=== PATIENT | male | born 1965 | race Caucasian/White ===

== ENCOUNTER 2021-06-02 08:06 | Emergency (ER) | payer OTHER ==
[2021-06-02] MEDS ORDERED: Acetaminophen 325 MG Tab PO ONE (08:41)
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
== END 2021-06-02 10:10 | disposition home or self-care (01) ==
LOC: JP.ED 08:06
DX: S40.011A Contusion of right shoulder, initial encounter (principal); S50.01XA Contusion of right elbow, initial encounter; S80.01XA Contusion of right knee, initial encounter; Z95.1 Presence of aortocoronary bypass graft; V49.10XA Passenger injured in collision with unspecified motor vehicles in nontraffic accident, initial encounter; Y92.410 Unspecified street and highway as the place of occurrence of the external cause
CPT/HCPCS: 73030; 73080; 73562; 99284; A9270

== ENCOUNTER 2021-07-27 06:57 | Day surgery (SDC) | payer OTHER ==
[2021-07-27 07:52] LABS: CORONAVIRUS COVID-19 NAA NEGATIVE (NEGATIVE)
[2021-07-27] MEDS ORDERED: Nozin Nasal Sanitizer NASBOTH ONE (08:00)
[2021-07-27] MEDS ORDERED: Lactated Ringers 1,000 ML IV SCH (08:15)
[2021-07-27] MEDS ORDERED: ceFAZolin 1 GM in Sodium Chloride 0.9% 50 ML IV ONE (09:00)
[2021-07-27] MEDS ORDERED: ceFAZolin 1 GM in Premix Bag 1 BAG IV ONE (09:00)
[2021-07-27] MEDS ORDERED: Bupivacaine 0.5% 30 ML SDV ONE (09:33)
[2021-07-27] MEDS ORDERED: fentaNYL 100 MCG/2 ML SDV ONE (11:03)
[2021-07-27] MEDS ORDERED: Ketorolac 30 MG/ML SDV ONE (11:11)
[2021-07-27] MEDS ORDERED: Propofol 200 MG/20 ML SDV ONE (11:32)
[2021-07-27] MEDS ORDERED: Ondansetron 4 MG/2 ML SDV ONE (11:32)
[2021-07-27] MEDS ORDERED: Dexamethasone 4 MG/ML SDV ONE (11:32)
[2021-07-27] MEDS ORDERED: Bupivacaine 0.5% 50 ML MDV ONE (11:32)
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
== END 2021-07-27 14:00 | disposition home or self-care (01) ==
LOC: JP.SDS 06:57
PROVIDERS: ATTEND Specialist
DX: M75.111 Incomplete rotator cuff tear or rupture of right shoulder, not specified as traumatic (principal); M75.41 Impingement syndrome of right shoulder; S43.431A Superior glenoid labrum lesion of right shoulder, initial encounter; M19.011 Primary osteoarthritis, right shoulder; I25.10 Atherosclerotic heart disease of native coronary artery without angina pectoris; E78.5 Hyperlipidemia, unspecified; I25.2 Old myocardial infarction; Z01.812 Encounter for preprocedural laboratory examination; Z20.822 Contact with and (suspected) exposure to COVID-19; Z95.1 Presence of aortocoronary bypass graft; Z88.0 Allergy status to penicillin; Z79.899 Other long term (current) drug therapy; Z79.82 Long term (current) use of aspirin
CPT/HCPCS: 0241U; 29824; 29826; 36415; 80053; 85027; A9270; C1713; J0690; J1100; J1885; J2405; J2704; J3010; J3490; J7120

== ENCOUNTER 2021-11-02 07:20 | Day surgery (SDC) | payer OTHER ==
[~2021-11-02 07:20] MED LIST: Bupivacaine 0.5% 30 ML SDV ONE
[2021-11-02] MEDS ORDERED: Nozin Nasal Sanitizer NASBOTH ONE (08:00)
[2021-11-02] MEDS ORDERED: Lactated Ringers 1,000 ML IV SCH (08:00)
[2021-11-02 08:22] LABS: CORONAVIRUS COVID-19 NAA NEGATIVE (NEGATIVE)
[2021-11-02] MEDS ORDERED: ceFAZolin 1 GM in Premix Bag 1 BAG IV ONE (08:30)
[2021-11-02] MEDS ORDERED: Propofol 200 MG/20 ML SDV ONE ×3 (09:18→10:31)
[2021-11-02] MEDS ORDERED: fentaNYL 100 MCG/2 ML SDV ONE ×2 (09:18→11:01)
[2021-11-02] MEDS ORDERED: Midazolam 1 MG/ML 2 ML SDV ONE (09:18)
[2021-11-02] MEDS ORDERED: Bupivacaine 0.5% 30 ML SDV ONE (09:20)
[2021-11-02] MEDS ORDERED: Lactated Ringers 1,000 ML ONE (09:57)
[2021-11-02 13:46] VITALS: PULSE 50
[2021-11-02 14:27] VITALS: BP 124/68
== END 2021-11-02 15:49 | disposition home or self-care (01) ==
LOC: JP.SDS 07:20
PROVIDERS: ATTEND Specialist
DX: M75.111 Incomplete rotator cuff tear or rupture of right shoulder, not specified as traumatic (principal); M25.811 Other specified joint disorders, right shoulder; I25.10 Atherosclerotic heart disease of native coronary artery without angina pectoris; I25.2 Old myocardial infarction; E66.9 Obesity, unspecified; Z80.0 Family history of malignant neoplasm of digestive organs; Z87.891 Personal history of nicotine dependence; Z01.812 Encounter for preprocedural laboratory examination; Z20.822 Contact with and (suspected) exposure to COVID-19; Z68.31 Body mass index [BMI] 31.0-31.9, adult
CPT/HCPCS: 0241U; 36415; 80048; 85027; 93005; A9270-GY; C1713; J0690; J2250; J2704; J3010; J3490; J7120